=== PATIENT | female | born 1955 | race Caucasian/White ===

== ENCOUNTER → 2016-11-18 | Outpatient (CLI) | payer OTHER ==
--- NOTE | 2016-11-18 11:52 | RADRPT ---
EXAM DATE/TIME: 11/18/2016 00:00 [facility] COMPARISON: No previous studies available for comparison. INDICATIONS : Dysphagia FLUORO TIME: 1.8 minutes IMAGE COUNT: 0 CONTRAST: Dose as prescribed by speech pathologist. MEDICAL HISTORY : Multiple sclerosis. SURGICAL HISTORY : None. ENCOUNTER: Initial ACUITY: 3 months PAIN SCORE: 0/10 LOCATION: Bilateral neck FINDINGS: A modified barium swallow was performed with speech pathology. Patient was given a variety of liquids to swallow. Cervical esophagus is normal in motility and structure For a full detailed report, see report by the speech pathologist. CONCLUSION: Normal examination Leobardo Badillo MD on November 18, 2016 at 11:51 Board Certified Radiologist. This report was verified electronically.
== END ==
LOC: HRAD 09:49
DX: R13.10 Dysphagia, unspecified (principal)
CPT/HCPCS: 74230

== ENCOUNTER 2017-10-19 06:17 | Day surgery (SDC) | payer OTHER ==
[~2017-10-19] VITALS: Ht 158.8 cm; Wt 56.8 kg
[2017-10-19] MEDS ORDERED: AMIT8CAP6 PO (06:44)
[2017-10-19] MEDS ORDERED: DIME240C PO (06:44)
[2017-10-19 06:51] VITALS: BP 136/84; PULSE 68; RESP 20; TEMP 97.7; O2SAT 100
[2017-10-19] MEDS ORDERED: ceFAZolin 2 GM PREMIX 50 ML - implanted port/tunneled catheter insertion IV SCH (07:00)
[2017-10-19] MEDS ORDERED: VANCOMYCIN 1000 MG/NS 250 ML - implanted port/tunneled catheter IV SCH ×2 (07:00)
[2017-10-19] MEDS ORDERED: POVIDONE IODINE 5% (ANTISEPSIS KIT) 4 APPLICATIONS EACH NARE SCH (07:00)
[2017-10-19] MEDS ORDERED: SODIUM CHLORIDE 0.9% 1000 ML IV SCH (07:00)
[2017-10-19] MEDS ORDERED: CHLORHEXIDINE GLUCONATE 2 % 1 PACK (2 CLOTHS) TOPICAL SCH (07:00)
[2017-10-19] MEDS ORDERED: LIDOCAINE 1%/EPINEPHrine 1:100,000 SOLN 20 ML VIAL ONE ×2 (08:24→08:44)
--- NOTE | 2017-10-19 09:25 | PD.RAD ---
Post Procedure Progress Note Pre Procedure Diagnosis: (1) Multiple sclerosis Post Procedure Diagnosis: (1) Multiple sclerosis Procedure Date: Oct 19, 2017 Supervising Radiologist: Jean-Claude Macdonald Proceduralist/Assist: RT Gus(R) Anesthesia: Local, Conscious Sedation Plan of Activity Patient to Unit: ROPU Patient Condition: Good See PACS Report for procedural detail/treatment Central Venous Access Device Procedure 1 Right Internal Jugular Infusaport Placement single lumen Irish: 8 Jean-Claude Macdonald MD Oct 19, 2017 09:25
[2017-10-19 09:30] VITALS: BP 123/74; PULSE 68; RESP 18; TEMP 97.8; O2SAT 100
[2017-10-19 09:45] VITALS: BP 125/75; PULSE 72; RESP 16; O2SAT 99
--- NOTE | 2017-10-19 10:02 | RADRPT ---
EXAM DATE/TIME: 10/19/2017 08:11 [facility] COMPARISON: No previous studies available for comparison. INDICATIONS : Patient presents with multiple sclerosis in need of port placement for treatment. MEDICAL HISTORY : Multiple Sclerosis Periphreal Necropathy SURGICAL HISTORY : Carpal Tunnel RT wrist Hysterectomy ENCOUNTER: Initial ACUITY: 1 month PAIN SCORE: 0/10 FLUORO TIME: 0.7 minutes IMAGE SERIES: 1 SEDATION TIME: 35 minutes ACCESS: Right internal jugular vein SEDATION: 1.) 2.5 mg midazolam (Versed) IV 2.) 125 mcg fentanyl (Sublimaze) IV 3.) 30units Lidocaine with epinephrine SC Prophylactic antibiotics were administered with appropriate pre-procedure timing. Vancomycin within 2 hours of procedure, Ancef (or alternative) within 1 hour of procedure. DEVICE: 1. 8 [place] single lumen cm [id number] PROCEDURE : 1. Continuous pulse oximetry and EKG monitoring. 2. Intravenous conscious sedation. 3. Ultrasound guidance for venous access. 4. Fluoroscopic guided implantable central venous port placement. The patient was placed supine. The neck was prepped in sterile fashion. Full sterile technique was u sed, including cap, mask, sterile gloves and gown, and a large sterile sheet. Hand hygiene and 2% ch lorhexidine Betadine was utilized per protocol for cutaneous antisepsis with appropriate dry time for site. Sterile gel and sterile probe cover were utilized for ultrasound guidance. The skin and sub cutaneous tissues were infiltrated with local anesthetic solution. Under direct ultrasound guidance, central venous access was accomplished in the targeted vessel. The ultrasound images depicting access guidance were stored and saved to PACS for permanent record. A s ubcutaneous pocket was created using blunt dissection. The port was introduced to the pocket. The c atheter tubing was fed through a subcutaneous tunnel to the venotomy site. The catheter tubing was c ut to a suitable length and then was introduced through a valved Peel-Away sheath and positioned with catheter tubing tip at the cavo-atrial junction level. The pocket incision was closed with subcutic ular Vicryl suture. Steri-Strips were applied. The port was flushed and locked with heparin solutio n per protocol. Sterile dressing was applied to the site. The patient tolerated the procedure well. Conscious sedation was performed with the prescribed dosages and duration as above in the presence of an independent trained radiology nurse to assist in the monitoring of the patient. EKG and oximetry remained stable throughout the procedure. The patient tolerated the procedure well and there were no complications. The patient was sent to post anesthesia recovery in stable condition. CONCLUSION: Uncomplicated ultrasound and fluoroscopic guided implanted central venous port catheter placement as described in detail above. An 8 [place] Power port was placed. Jean-Claude Macdonald MD on October 19, 2017 at 10:00 Board Certified Radiologist. This report was verified electronically.
[2017-10-19 10:15] VITALS: BP 119/76; PULSE 70; RESP 16; O2SAT 97
[2017-10-19 10:45] VITALS: BP 115/68; PULSE 65; RESP 16; O2SAT 100
== END 2017-10-19 11:30 | disposition home or self-care (01) ==
LOC: HROP 06:17 → HRIP 06:25 → HROP 11:30
PROVIDERS: ATTEND Internal Medicine
DX: Z45.2 Encounter for adjustment and management of vascular access device (principal); G35 Multiple sclerosis
CPT/HCPCS: 36561; 76937; 77001; 99152; 99153; C1788; J0690; J1642; J3010; J3370; J7030; J7050